=== PATIENT | female | born 1990 | race Two or more races ===

== ENCOUNTER 2021-10-21 09:28 | Outpatient (CLI) | payer OTHER | END 2021-10-21 23:59 | disposition home or self-care (01) | LOC: LAB 09:28 | PROVIDERS: ATTEND Specialist | DX: Z01.812 Encounter for preprocedural laboratory examination (principal); Z20.822 Contact with and (suspected) exposure to COVID-19 | CPT/HCPCS: C9803; U0003 ==

== ENCOUNTER 2021-10-24 08:47 | Day surgery (SDC) | payer OTHER ==
--- NOTE | 2021-10-24 09:00 | NUR ---
PT ADMIT FOR SHOULDER SURGERY. BP- 122/74, HR- 66, RR- 18, MT- 98.1, SATS 99% RA. . UA COLLECTED FOR PREG TEST AOX4
[2021-10-24] MEDS ORDERED: HYDROMORPHONE INJ 2 MG/ML DISP.SYRIN ONE (09:28)
[2021-10-24] MEDS ORDERED: MIDAZOLAM HCL 2 MG/2ML VIAL ONE (09:29)
[2021-10-24] MEDS ORDERED: ROCURONIUM BROMIDE 50 MG/5 ML ONE (09:29)
[2021-10-24] MEDS ORDERED: BUPIVACAINE 0.5 % PF 150 MG/30 ML VIAL ONE (09:29)
--- NOTE | 2021-10-24 09:55 | NUR ---
RN NOTE- PT TRANSPORTED TO SURGERY AT THIS TIME. CONSENTS SIGNED, CHECKLIST COMPLETED
[2021-10-24] MEDS ORDERED: EPINEPHRINE (1:1000) 1 MG/ML AMPUL ONE (10:18)
[2021-10-24] MEDS ORDERED: methylPREDNISolone ACETATE 40 MG/ML VIAL ONE (11:35)
[2021-10-24] MEDS ORDERED: LIDOCAINE 1% INJ 50 ML MDV IJ ONE (11:36)
[2021-10-24] MEDS ORDERED: methylPREDNISolone ACETATE 80 MG/ML VIAL ONE (11:36)
[2021-10-24] MEDS ORDERED: HYDROCODONE/APAP 5/325MG TABLET PO PRN ×2 (12:30)
--- NOTE | 2021-10-24 12:50 | NUR ---
RN NOTE- PT RETURNED FROM SURGERY. VS- BP- 119/78, HR- 58, RR- 18, T- 97.5, 93% RA, ALERT CONFUSION PRESENT THOUGH MILD. MADE COMFORTABLE, DENIES PAIN AT PRESENT, LIQUIDS PROVIDED, DRESSING TO RT SHOULDER DRY INTACT. MONITOR / ASSESS/ ASSIST , DC WHEN COMFORTABLE AND READY.
--- NOTE | 2021-10-24 13:38 | NUR ---
RN NOTE- PT ATE JELLO, EXPERIENCED SOME NAUSEA. SLEEPY AT PRESENT. VS STABLE. REFUSES RX FOR N&V. WANTS TO REST. MONITORING
--- NOTE | 2021-10-24 16:25 | NUR ---
RN NOTE- N&V CONTINUES. FELIX CAMPBELL ORDERED ZOFRAN 4 MG IVP X ONE DOSE
[2021-10-24] MEDS ORDERED: ONDANSETRON HCL/PF 4 MG/2 ML VIAL IVP ONE (16:30)
[2021-10-24] MEDS ORDERED: ONDANSETRON HCL/PF 4 MG/2 ML VIAL IV PRN (16:30)
--- NOTE | 2021-10-24 18:36 | NUR ---
RN NOTE- PT W DECREASING n&v AT THIS TIME. DRINKING FLUIDS. AMBULATING IN ROOM, USING BR W ASSIST. DENIES PAIN. RT ARM IN SLING, ADJUSTED FOR COMFORT. AWAITING OUTSIDE. PT TO BE DC ONCE COMFORTABLE. BED LOCKED. CALL LIGHT IN REACH
--- NOTE | 2021-10-24 19:00 | NUR ---
RN NOTE- PT DC AT THIS TIME W BY HER SIDE. DC INSTRUCTIONS AND MEDS GIVEN REVIEWED AND UNDERSTOOD. IV SITE DC'D AND WRISTBAND REMOVED. ESCORTED OFF UNIT BY SAKINA.
== END 2021-10-24 18:00 | disposition home or self-care (01) ==
LOC: DS 08:47 → UNDOADMIN 08:51 → MED 08:51 → DS 18:00 → UNDODISIN 19:05
PROVIDERS: ATTEND Specialist
DX: M75.41 Impingement syndrome of right shoulder (principal); E66.01 Morbid (severe) obesity due to excess calories; Z98.890 Other specified postprocedural states; Z79.899 Other long term (current) drug therapy
CPT/HCPCS: 20610; 29823; 84703; A4217; A4565; J0171; J0330; J0690; J1040; J1100; J1170; J1885; J2250; J2405 ×2; J2704; J3490 ×4; J7030 ×2; G0378; J1030